=== PATIENT | male | born 1985 | race Caucasian/White ===

== ENCOUNTER 2018-04-25 21:44 | Emergency (ER) | payer BC ==
[2018-04-25] MEDS ORDERED: LORazepam 1 MG TAB ONE (22:43)
[2018-04-25] MEDS ORDERED: LORazepam 1 MG TAB PO ONE (22:44)
[2018-04-25] MEDS ORDERED: ASPIRIN 81 MG CHEWABLE TAB PO ONE (22:44)
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
[2018-04-25 23:21] LABS: PLATELET COUNT 296 10^3/uL (150-400)
[2018-04-26 00:37] VITALS: BP 142/82
== END 2018-04-26 00:34 | disposition home or self-care (01) ==
DX: R07.9 Chest pain, unspecified (principal); R20.2 Paresthesia of skin; F41.9 Anxiety disorder, unspecified; Z79.899 Other long term (current) drug therapy
CPT/HCPCS: 84484-ER

== ENCOUNTER 2018-05-26 18:03 | Emergency (ER) | payer BC, OTHER ==
--- NOTE | 2018-05-26 18:18 | EDPHY ---
H & P Stated Complaint: chest pain for 4 or 5 hours, nausea Source: Patient - Personal History Current Tetanus/Diphtheria Vaccine: Yes Current Tetanus Diphtheria and Acellular Pertussis (TDAP): Yes - Medical/Surgical History Hx Asthma: No Hx Chronic Respiratory Disease: No Hx Diabetes: No Hx Cardiac Disease: No Hx Renal Disease: No Hx Cirrhosis: No Hx Alcoholism: No Hx HIV/AIDS: No Hx Splenectomy or Spleen Trauma: No Other PMH: DENIES - Social History Smoking Status: Never smoked Time Seen by Provider: 05/26/18 18:17 HPI/ROS: CHIEF COMPLAINT: [ ] HISTORY OF PRESENT ILLNESS: [Need 4: Location, Duration, Severity, Quality, Context, Timing Modifying Factors, Associated S&S] REVIEW OF SYSTEMS: A comprehensive 10 point review of systems is otherwise negative aside from elements mentioned in the history of present illness. (Nathan Wayne) - Physical Exam Exam: General Appearance: [Alert, no distress] Eyes: [Pupils equal and round no pallor or injection] ENT, Mouth: [Mucous membranes moist] Respiratory: [There are no retractions, lungs are clear to auscultation] Cardiovascular: [Regular rate and rhythm] Gastrointestinal: [Abdomen is soft and nontender, no masses, bowel sounds normal] Neurological: [A&O, normal motor function, normal sensory exam, normal cranial nerves] Skin: [Warm and dry, no rashes] Musculoskeletal: [Neck is supple nontender] Extremities: [symmetrical, full range of motion] Psychiatric: [Patient is oriented X 3, there is no agitation] (Nathan Wayne ) Constitutional: Initial Vital Signs Temperature (C) 37 C 05/26/18 18:04 Heart Rate 108 H 05/26/18 18:04 Respiratory Rate 20 05/26/18 18:04 Blood Pressure 148/97 H 05/26/18 18:04 O2 Sat (%) 95 05/26/18 18:04 O2 Delivery Mode Room Air Allergies/Adverse Reactions: No Known Allergies Allergy (Unverified 04/25/18 21:52) Home Medications: Medication Instructions Recorded Omeprazole 04/25/18 Medical Decision Making ED Course/Re-evaluation: CHIEF COMPLAINT: HISTORY OF PRESENT ILLNESS: must have 4 elements: Location, Quality, Severity , Duration, Timing, Context, Modifying Factors, Associated Signs and Symptoms REVIEW OF SYSTEMS: A comprehensive 10 system review of systems is otherwise negative aside from elements mentioned in the history of present illness and medical decision making. PHYSICAL EXAM: HR, BP, O2 Sat, RR. Temp noted General Appearance: Alert, well hydrated, appropriate, and non-toxic appearing. Head: Atraumatic without scalp tenderness or obvious injury Eyes: Pupils equal, round, reactive to light and accommodation, EOMI, no trauma , no injection. Ears: Clear bilaterally, no perforation, normal landmarks Nose: Atraumatic, no rhinorrhea, clear. Throat: There is no erythema or exudates, no lesions, normal tonsils, mucus membranes moist. Neck: Supple, 2+ carotid upstroke, nontender, no lymphadenopathy. Respiratory: No retractions, no distress, no wheezes, and no accessory muscle use. Lungs are clear to auscultation bilaterally. Cardiovascular: Regular rate and rhythm, no murmurs, rubs, or gallops. Bilateral carotid, radial, dorsalis pedis, and posterior tibial pulses intact. Good capillary refill all extremities. Gastrointestinal: Abdomen is soft, nontender, non-distended, no masses, no rebound, no guarding, no peritoneal signs. Musculoskeletal: Normal active ROM of all extremities, atraumatic. Neurological: Alert, appropriate, and interactive. The patient has normal DTRs and non-focal cranial nerves, motor, sensory, and cerebellar exam. Skin: No rashes, good turgor, no nodules on palpation. Past medical history: Past surgical history: Family history: Social history: DIAGNOSTICS/PROCEDURES/CRITICAL CARE TIME: DIFFERENTIAL DIAGNOSIS: MEDICAL DECISION MAKING: (Harshil Wray) Departure - Departure Referrals: NONE *PRIMARY CARE P,. [Primary Care Provider] - As per Instructions
[2018-05-26] MEDS ORDERED: LORazepam 2 MG/ML INJ IVP ONE (18:28)
--- NOTE | 2018-05-26 18:45 | EDPHY ---
H & P Stated Complaint: chest pain for 4 or 5 hours, nausea Time Seen by Provider: 05/26/18 18:17 - Personal History Current Tetanus/Diphtheria Vaccine: Yes Current Tetanus Diphtheria and Acellular Pertussis (TDAP): Yes - Medical/Surgical History Hx Asthma: No Hx Chronic Respiratory Disease: No Hx Diabetes: No Hx Cardiac Disease: No Hx Renal Disease: No Hx Cirrhosis: No Hx Alcoholism: No Hx HIV/AIDS: No Hx Splenectomy or Spleen Trauma: No Other PMH: DENIES - Social History Smoking Status: Never smoked Constitutional: Initial Vital Signs Temperature (C) 37 C 05/26/18 18:04 Heart Rate 108 H 05/26/18 18:04 Respiratory Rate 20 05/26/18 18:04 Blood Pressure 148/97 H 05/26/18 18:04 O2 Sat (%) 95 05/26/18 18:04 O2 Delivery Mode Room Air Allergies/Adverse Reactions: No Known Allergies Allergy (Unverified 04/25/18 21:52) Home Medications: Medication Instructions Recorded Omeprazole 04/25/18 Medical Decision Making - Diagnostics Imaging Results: Imaging Impressions Chest X-Ray 05/26/18 18:18 Impression: Normal. Imaging: I viewed and interpreted images myself ED Course/Re-evaluation: CHIEF COMPLAINT: Chest pain HISTORY OF PRESENT ILLNESS: The patient is a 32 y/o mal with a history of anxiety complaining of chest pain and a rapid heart rate onset at 12:00pm today. He tried taking an Alprazolam 2 hours ago, 4:45 pm, as he takes this for anxiety but this did not help his symptoms. Since his symptoms did not improve he decided to present to the emergency department. No fever, headache, shortness of breath, abdominal pain, urinary or bowel complaints, numbness, paresthesias. REVIEW OF SYSTEMS: A 10 point review of systems was performed and is negative with the exception of the elements mentioned in the history of present illness. PHYSICAL EXAM: HR, BP, O2 Sat, RR. Temp noted General Appearance: Tremulous, alert, well hydrated, appropriate, and non- toxic appearing. Head: Atraumatic without scalp tenderness or obvious injury Eyes: Pupils equal, round, reactive to light and accommodation, EOMI, no trauma , no injection. Ears: Clear bilaterally, no perforation, normal landmarks Nose: Atraumatic, no rhinorrhea, clear. Throat: There is no erythema or exudates, no lesions, normal tonsils, mucus membranes moist. Neck: Supple, 2+ carotid upstroke, nontender, no lymphadenopathy. Respiratory: No retractions, no distress, no wheezes, and no accessory muscle use. Lungs are clear to auscultation bilaterally. Cardiovascular: Regular rate and rhythm, no murmurs, rubs, or gallops. Bilateral carotid, radial, dorsalis pedis, and posterior tibial pulses intact. Good capillary refill all extremities. Gastrointestinal: Abdomen is soft, nontender, non-distended, no masses, no rebound, no guarding, no peritoneal signs. Musculoskeletal: Normal active ROM of all extremities, atraumatic. Neurological: Alert, appropriate, and interactive. The patient has normal DTRs and non-focal cranial nerves, motor, sensory, and cerebellar exam. Skin: No rashes, good turgor, no nodules on palpation. Past medical history: Anxiety Past surgical history: Denies Family history: Denies Social history: Lives in [place], single, employed DIAGNOSTICS/PROCEDURES/CRITICAL CARE TIME: EKG: The 12 lead EKG was interpreted by myself as sinus mechanism tachycardia with a rate of 105, no ischemia. See hard copy and/or "tracemaster" electronic copy for interpretation. Chest x-ray: Negative DIFFERENTIAL DIAGNOSIS: The differential diagnosis for the patient's chest pain included but was not limited to anxiety, myocardial ischemia, pulmonary embolus, chest wall pain, pleural inflammation, and pulmonary infectious causes. MEDICAL DECISION MAKING: The patient is a 32 y/o mal with a history of anxiety presenting with chest pain and a rapid heart rate onset at 12:00pm today. He has a normal cardiac exam but is quite tremulous which I presume is due to anxiety. Labs, chest x-ray , and EKG ordered. 1843: I interpreted patient's EKG as sinus mechanism tachycardia with a rate of 105, no ischemia. 1899: Patient's labs, EKG, and chest x-ray are normal; he is safe to be discharged home. 1903: Reassessed patient and discussed laboratory and imaging findings. I have advised him to follow up with a geriatric nurse practitioner. Return precautions provided; patient is comfortable with this plan. - Data Points Laboratory Results: Laboratory Results 05/26/18 18:25 05/26/18 05/26/18 18:25 18:23 Sodium 138 mEq/L mEq/L (135-145) Potassium 4.1 mEq/L mEq/L (3.5-5.2) Chloride 106 mEq/L mEq/L (97-110) Carbon Dioxide 17 mEq/l L mEq/l (22-31) Anion Gap 15 mEq/L H mEq/L (6-14) BUN 14 mg/dL mg/dL (7-23) Creatinine 1.1 mg/dL mg/dL (0.7-1.3) Estimated GFR > 60 Glucose 139 mg/dL H mg/dL (70-100) Calcium 10.0 mg/dL mg/dL (8.5-10.4) POC Troponin I 0.00 ng/mL ng/mL (0.00-0.08) Medications Given: Discontinued Medications Lorazepam (Ativan Injection) 1 mg IVP EDNOW ONE Stop: 05/26/18 18:29 Last Admin: 05/26/18 18:35 Dose: 1 mg Point of Care Test Results: Chemistry 05/26/18 18:23 POC Troponin I 0.00 ng/mL ng/mL (0.00-0.08) Departure - Departure Disposition: Home, Routine, Self-Care Clinical Impression: Anxiety, Rapid heart rate Chest pain Qualifiers: Chest pain type: other chest pain Qualified Code(s): R07.89 - Other chest pain Condition: Good Instructions: Chest Pain (ED), Anxiety (ED), Tachycardia (ED) Additional Instructions: 1. Follow-up with your primary doctor within 72 hours. 2. Return to the Emergency Department for fever, chest pain, shortness of breath , increasing pain or other worsening of condition. 3. Follow up with a geriatric nurse practitioner for further testing, as soon as possible, within one week. 4. As we discussed, it is impossible to fully rule out heart disease as the cause of your chest pain in the emergency department. We would be happy to reevaluate you and observe you in the hospital at any time. Referrals: [facility],. [Clinic] - As per Instructions [facility],. [Clinic] - As per Instructions Report Scribed for: Harshil Wray Report Scribed by: Susanna Phipps Date of Report: 05/26/18 Time of Report: 19:19
[2018-05-26 19:14] VITALS: BP 128/85
== END 2018-05-26 19:14 | disposition home or self-care (01) ==
DX: R07.89 Other chest pain (principal); F41.9 Anxiety disorder, unspecified; R00.0 Tachycardia, unspecified
CPT/HCPCS: 84484-ER; 96374; J2060

== ENCOUNTER 2018-05-28 21:13 | Emergency (ER) | payer BC, OTHER ==
--- NOTE | 2018-05-28 21:49 | EDPHY ---
H & P Stated Complaint: SLIPPED ON BLACK ICE ON THE HILL L ANKLE PAIN Time Seen by Provider: 05/28/18 21:44 HPI/ROS: HPI: This is a 32-year-old male who presents with Chief Complaint: SLIPPED ON BLACK ICE ON THE HILL L ANKLE PAIN Location: Left posterior ankle Quality: Injury Duration: 1 hr prior to arrival Signs and Symptoms: No bleeding, no radiation, no numbness, no weakness, no tingling, no incontinence, + decreased range of motion, + swelling, + pain, no fever Timing: Acute Severity: 10/22 Context: Patient reports that he was walking outside carrying groceries when he slipped on black ice. He reports that he seth it his right ankle and felt a popping sensation in the posterior aspect. He reports he is unable to bear weight secondary to pain. He has noticed moderate swelling in the lateral aspect. Denies LOC/head injury/neck pain/dizziness/nausea/vomiting/amnesia. Modifying Factors: None Comment: ROS: A comprehensive 10 system review of systems is otherwise negative aside from elements mentioned in the history of present illness. MEDICAL/SURGICAL/SOCIAL HISTORY: Medical history: Generally healthy. Does not take any regular medications. Surgical history: Denies Social history: Student at [employer] CONSTITUTIONAL: Well-developed, well-nourished adult white male, awake and alert, no obvious distress HEENT: Atraumatic and normocephalic. NECK: supple, no midline tenderness, flexion 45 degrees, extension 45 degrees, right and left lateral flexion 45 degrees. No meningismus. Cardiovascular: Normal S1/S2, regular rate, regular rhythm, without murmur rub or gallop. PULMONARY/CHEST: Symmetrical and nontender. no crepitus. Clear to auscultation bilaterally. Good air movement. No accessory muscle usage. ABDOMEN: Soft, nondistended, nontender, no ecchymosis. EXTREMITIES: 2/2 pulses, strength 5/5, left Ankle: Moderate lateral malleolus swelling and ecchymosis; Plantar flexion to 50, dorsiflexion to 20. Foot inversion to 35 degree. Moderate tenderness/swelling Anterior talofibular ligament. No tenderness/swelling Calcaneofibular ligament, no tenderness/ swelling posterior talofibular ligament, no tenderness/swelling posterior inferior tibiofibular ligament. Achilles tendon intact. DIP/PIP/MCP flexion/ extension intact with good light touch sensation. no deformities, no clubbing, no cyanosis or edema. NEUROLOGICAL: no focal neuro deficits. GCS 15. Light touch sensation intact. SKIN: Warm and dry, no erythema. no rash. Good capillary refill. Source: Patient Exam Limitations: No limitations - Personal History Current Tetanus/Diphtheria Vaccine: Yes Current Tetanus Diphtheria and Acellular Pertussis (TDAP): Yes - Medical/Surgical History Hx Asthma: No Hx Chronic Respiratory Disease: No Hx Diabetes: No Hx Cardiac Disease: No Hx Renal Disease: No Hx Cirrhosis: No Hx Alcoholism: No Hx HIV/AIDS: No Hx Splenectomy or Spleen Trauma: No Other PMH: DENIES - Social History Smoking Status: Never smoked Constitutional: Initial Vital Signs Temperature (C) 36.8 C 05/28/18 21:37 Heart Rate 104 H 05/28/18 21:37 Respiratory Rate 18 05/28/18 21:37 Blood Pressure 137/81 H 05/28/18 21:37 O2 Sat (%) 95 05/28/18 21:37 O2 Delivery Mode Room Air Allergies/Adverse Reactions: No Known Allergies Allergy (Unverified 05/28/18 21:39) Home Medications: Medication Instructions Recorded Omeprazole 04/25/18 oxyCODONE/APAP 5/325 [Percocet 1 - 2 tab PO Q4H PRN #10 tab 05/28/18 5/325 (*)] Medical Decision Making - Diagnostics Imaging Results: Imaging Impressions Ankle X-Ray 05/28/18 21:41 Impression: Mildly displaced obliquely-oriented distal fibular metadiaphyseal junction fracture. Procedures: Procedure: Splint placement. A left 3 way short-leg Ortho Glass splint was applied. After application of the splint I returned and re-examined the patient. The splint was adequately immobilizing the joint and distal to the splint the patient's circulation and sensation was intact. ED Course/Re-evaluation: Vital signs reviewed and show mild tachycardia. Ice pack applied Left ankle x-ray obtained and shows torus fibula fracture Placed in 3 way short-leg Ortho Glass splint, crutches, orthopedic follow-up Percocet prepack and prescription for same given No signs of neurovascular compromise/tenting of skin/compartment syndrome/ extremities and joints examined above and below area of concern and are neurovascularly intact. This patient was seen under the supervision of my secondary supervising physician. I evaluated care for this patient independently. Discussed this patient with Dr. Barrientos who did not see the patient. Differential Diagnosis: Ankle injury differential diagnosis includes but is not limited to tibia fracture, fibula fracture, metatarsal fracture, LisFranc fracture, achilles tendon rupture, sprain. - Data Points Medications Given: Discontinued Medications Ibuprofen (Motrin) 600 mg PO EDNOW ONE Stop: 05/28/18 22:07 Last Admin: 05/28/18 22:12 Dose: 600 mg Oxycodone/Acetaminophen (Percocet 5/325mg Prepack#4) 1 btl TAKEHOME EDNOW ONE Stop: 05/28/18 22:43 Last Admin: 05/28/18 23:01 Dose: 1 btl Departure - Departure Disposition: Home, Routine, Self-Care Clinical Impression: Closed fracture of distal fibula Qualifiers: Encounter type: initial encounter Fracture morphology: torus Laterality: left Qualified Code(s): S82.822A - Torus fracture of lower end of left fibula, initial encounter for closed fracture Condition: Good Instructions: Oxycodone/Acetaminophen (By mouth), Ankle Fracture (ED), Crutch Instructions (ED), ORIF of an Ankle Fracture (DC), Splint Care (ED) Additional Instructions: Keep the splint dry and in place until seen by Orthopedics. Use crutches to aid ambulation. Start with toe-touch weight-bearing status. Take Tylenol 650 mg every 4 hours and/or Ibuprofen 600 mg every 8 hours with food as needed for pain. Use Percocet every 6 hours as needed for severe/break through pain. Do not use Tylenol and Percocet concomitantly. Apply ice for 30 minutes at a time; 2-3 times per day for the next 1-2 days. Follow up with Orthopedics in 5-7 days at which time they will evaluate and recommend with you if conservative management versus surgery is indicated. Return to the ER immediately if you experience new or worsening pain, discoloration, numbness, tingling, or any other symptoms that concern you. Referrals: oT Gonsales MD [Medical Doctor] - As per Instructions Prescriptions: oxyCODONE/APAP 5/325 [Percocet 5/325 (*)] 1 - 2 tab PO Q4H PRN #10 tab PRN Reason: Pain, Severe
[2018-05-28] MEDS ORDERED: IBUPROFEN 600 MG TAB PO ONE (22:06)
[2018-05-28] MEDS ORDERED: OXYCODONE/APAP 5/325MG PREPACK#4 BTL TAKEHOME ONE (22:42)
[2018-05-28 23:22] VITALS: BP 139/89
== END 2018-05-28 23:20 | disposition home or self-care (01) ==
PROC: 2W3RX1Z Immobilization of Left Lower Leg using Splint (ICD-10-PCS; principal; 2018-05-28)
DX: S82.822A Torus fracture of lower end of left fibula, initial encounter for closed fracture (principal); W00.0XXA Fall on same level due to ice and snow, initial encounter; Y92.481 Parking lot as the place of occurrence of the external cause; Y93.01 Activity, walking, marching and hiking
CPT/HCPCS: L3925

== ENCOUNTER 2018-08-11 16:59 | Emergency (ER) | payer OTHER ==
[2018-08-11] MEDS ORDERED: HYOSCYAMINE SULFATE 0.125 MG TAB PO ONE (17:12)
[2018-08-11] MEDS ORDERED: NS 1,000 ML IV ONE ×2 (17:12→18:04)
[2018-08-11] MEDS ORDERED: LIDOCAINE 2% VISCOUS 15 ML UDCUP PO ONE (17:12)
[2018-08-11] MEDS ORDERED: LORazepam 2 MG/ML INJ IVP ONE (17:12)
[2018-08-11] MEDS ORDERED: MAG HYDROX/AL HYDROX/SIMETH 30 ML UDCUP PO ONE (17:12)
--- NOTE | 2018-08-11 17:12 | EDPHY ---
H & P Source: Patient, Old records Exam Limitations: No limitations - Medical/Surgical History Hx Asthma: No Hx Chronic Respiratory Disease: No Hx Diabetes: No Hx Cardiac Disease: No Hx Renal Disease: No Hx Cirrhosis: No Hx Alcoholism: No Hx HIV/AIDS: No Hx Splenectomy or Spleen Trauma: No Other PMH: DENIES - Social History Smoking Status: Never smoked Time Seen by Provider: 08/11/18 17:09 HPI/ROS: HPI: This is a 32-year-old male who presents with Chief Complaint: Sudden onset of nausea and several episodes of vomiting and then accompanied by chest pain and anxiety Location: Epigastric Quality: Burning sharp pain Duration: 1-2 hours prior to arrival Signs and Symptoms: no shortness of breath at rest, no shortness of breath on exertion, no cough, + anterior generalized chest pain, no palpitations, no lower extremity edema, no wheezing, no orthopnea, no paroxysmal nocturnal dyspnea, no fever, no injury/trauma, no hemoptysis, no carpal pedal spasms, + nausea, + vomiting Timing: Acute Severity: Moderate Context: Patient has a history of got stroke esophageal reflux disease, generalized anxiety disorder, presents with complaints of 4 hr ago becoming nauseous and then vomiting several times of his stomach contents. He reports that he has not vomited in approximately 2 hr. Immediately after these episodes of vomiting he started to feel anxious. He then noticed some burning sharp epigastric pain that was nonradiating in nature. He reports that he can "taste bile in my mouth." The lean meal he has eaten today is breakfast which consisted of yogurt and coffee. He reports compliance with taking his Prilosec 20 mg every morning. Patient was seen in this emergency room May 26, 2018 with complaints of anxiety and chest pain. At that time he had a negative cardiac workup and was advised to follow up with Cardiology. He followed up with a athletic trainer in [place] and "had a unremarkable visit." no family cardiac history. Denies regular alcohol or NSAID use. Modifying Factors: Took Ativan 1 mg without relief of symptoms Comment: ROS: A comprehensive 10 system review of systems is otherwise negative aside from elements mentioned in the history of present illness. MEDICAL/SURGICAL/SOCIAL HISTORY: Medical history: GERD, anxiety disorder Surgical history: Denies Social history: Patient is a student at [employer]. Originally from [place]. CONSTITUTIONAL: Tremulous, very anxious adult white male, awake and alert, no obvious distress HEENT: Atraumatic and normocephalic, PERRL, EOMI. Nares patent; no rhinorrhea; no nasal mucosal edema. Tympanic membranes clear. Oropharynx clear, no exudate and moist pink mucosa. Airway patent. No lymphadenopathy. No meningismus. No carotid bruits. Cardiovascular: Normal S1/S2, tachycardia, regular rhythm, without murmur rub or gallop. PULMONARY/CHEST: Symmetrical and nontender. Clear to auscultation bilaterally. Good air movement. No accessory muscle usage. ABDOMEN: Soft, nondistended, nontender, no rebound, no guarding, no peritoneal signs, no masses or organomegaly. No CVAT. EXTREMITIES: 2/2 pulses, strength 5/5, no deformities, no clubbing, no cyanosis or edema. Negative Homans signs. NEUROLOGICAL: no focal neuro deficits. GCS 15. SKIN: Warm and dry, no erythema. no rash. Good capillary refill. (Betty Brown) Constitutional: Initial Vital Signs Temperature (C) 36.6 C 08/11/18 17:10 Heart Rate 109 H 08/11/18 17:10 Respiratory Rate 08/11/18 17:10 Blood Pressure 155/129 H 08/11/18 17:10 O2 Sat (%) 98 08/11/18 17:10 O2 Delivery Mode Room Air Allergies/Adverse Reactions: No Known Allergies Allergy (Unverified 05/28/18 21:39) Home Medications: Medication Instructions Recorded Omeprazole 04/25/18 Ondansetron Odt [Zofran Odt 4 mg 4 mg PO Q4 PRN #12 tab 08/11/18 (*)] Xanax 1 MG (*) 08/11/18 Medical Decision Making ED Course/Re-evaluation: Vital signs reviewed and show sinus tachycardia. Placed on property assessment monitor. EKG my read shows sinus tachycardia with a rate of 112 beats per minute but no acute ischemic changes, no arrhythmias, no heart block. Given 2 L normal saline, IV Zofran 4 mg, GI cocktail and IV Ativan 2 mg IV access, laboratory studies ordered Patient's heart risk score is low and I doubt this is cardiac in nature. This is most likely related to GERD and anxiety. 1740: Notified by tech that troponin 0.00 1800: Reassessed patient who reports moderate relief of symptoms. Asking for something to eat and drink. 1830: Notified by RN that patient asking to be discharged home. Politely refuses lab draw for repeat BMP level for interval change s/p IVF hydration. Repeat vital signs at discharge show resolution of tachycardia. Will increase his omeprazole from 20 mg daily to 40 mg daily with gastroenterology referral. This patient was seen under the supervision of my secondary supervising physician. I evaluated and cared for this patient with attending. (Betty Brown) Differential Diagnosis: Chest pain including but not limited to myocardial ischemia, pulmonary embolus, chest wall pain, pleural inflammation and pulmonary infectious causes. (Betty Brown) Other Provider: The patient was evaluated and managed by the Physician [employer] Salesperson. My co- signature indicates that I have reviewed this chart and I agree with the findings and plan of care as documented. I am the secondary supervising physician. (Julissa Guevara) - Data Points Laboratory Results: Laboratory Results 08/11/18 17:00 08/11/18 17:00 Medications Given: Discontinued Medications Al Hydroxide/Mg Hydroxide (Maalox Susp) 30 ml PO ONCE ONE Stop: 08/11/18 17:13 Last Admin: 08/11/18 17:28 Dose: 30 ml Hyoscyamine Sulfate (Levsin, Hyomax-Sl) 0.25 mg PO ONCE ONE Stop: 08/11/18 17:13 Last Admin: 08/11/18 17:28 Dose: 0.25 mg Sodium Chloride (Ns) 1,000 mls @ 0 mls/hr IV EDNOW ONE; Wide Open PRN Reason: Protocol Stop: 08/11/18 17:13 Last Admin: 08/11/18 17:26 Dose: 1,000 mls Sodium Chloride (Ns) 1,000 mls @ 0 mls/hr IV EDNOW ONE; Wide Open PRN Reason: Protocol Stop: 08/11/18 18:05 Last Admin: 08/11/18 18:08 Dose: 1,000 mls Lidocaine (Lidocaine 2% Viscous) 15 ml PO ONCE ONE Stop: 08/11/18 17:13 Last Admin: 08/11/18 17:28 Dose: 15 ml Lorazepam (Ativan Injection) 2 mg IVP EDNOW ONE Stop: 08/11/18 17:13 Last Admin: 08/11/18 17:27 Dose: 2 mg Ondansetron HCl (Zofran) 4 mg IVP EDNOW ONE Stop: 08/11/18 17:14 Last Admin: 08/11/18 17:27 Dose: 4 mg Point of Care Test Results: Chemistry 08/11/18 17:24 POC Troponin I 0.00 ng/mL ng/mL (0.00-0.08) Departure - Departure Disposition: Home, Routine, Self-Care Clinical Impression: Chest pain due to GERD Condition: Good Instructions: Diet for Stomach Ulcers and Gastritis (ED), Gastroesophageal Reflux Disease (ED), Upper Endoscopy (DC) Additional Instructions: Consume a minimum of 8-10 glasses of water or electrolyte fluid replacement drinks that include Gatorade, Powerade, Pedialyte. Eat a bland diet for the next 48 hours and then slowly advance as tolerated. Increase Prilosec [id number] to 40 mg every day. Take Zofran 1 tab every 4-6 hours as needed for nausea, vomiting. Follow a GERD/gastritis diet. Symptoms continue to persist over the next 1-2 weeks, follow-up with Gastroenterology. Referrals: Maco Smith MD [Medical Doctor] - As per Instructions Prescriptions: Ondansetron Odt [Zofran Odt 4 mg (*)] 4 mg PO Q4 PRN #12 tab PRN Reason: Nausea/Vomiting, Use 1st
[2018-08-11] MEDS ORDERED: ONDANSETRON 4 MG/2 ML VIAL IVP ONE (17:13)
[2018-08-11 17:30] LABS: PLATELET COUNT 293 10^3/uL (150-400)
--- NOTE | 2018-08-11 17:32 | CPEKG ---
Test Reason : OPEN Blood Pressure : / mmHG Vent. Rate : 112 BPM Atrial Rate : 112 BPM P-R Int : 157 ms QRS Dur : 093 ms QT Int : 332 ms P-R-T Axes : 081 -40 051 degrees QTc Int : 453 ms Sinus tachycardia Probable left atrial enlargement Left axis deviation Confirmed by Julissa Guevara ([id number]) on 08/11/2018 5:31:49 PM Referred By: Julissa Guevara Confirmed By:Julissa Guevara
[2018-08-11 18:44] VITALS: BP 140/99
== END 2018-08-11 18:43 | disposition home or self-care (01) ==
DX: K21.9 Gastro-esophageal reflux disease without esophagitis (principal); F41.9 Anxiety disorder, unspecified; E86.9 Volume depletion, unspecified
CPT/HCPCS: 84484-ER; 96374; J2060; J2405